=== PATIENT | female | born 1955 | race Caucasian/White ===

== ENCOUNTER 2021-08-19 20:29 | Emergency (ER) | payer OTHER ==
[~2021-08-19] VITALS: Ht 152.4 cm; Wt 63.5 kg
[2021-08-19 20:46] VITALS: BP 148/80
--- NOTE | 2021-08-19 20:49 | NUR ---
TO LOBBY A/W BED AMBULATORY
[2021-08-19 21:20] LABS: BASOPHILS # (AUTO) 0.1 K/uL (0.00-0.22); BASOPHILS % (AUTO) 0.7 % (0.0-2.0); EOSINOPHILS # (AUTO) 0.2 K/uL (0-0.4); EOSINOPHILS % (AUTO) 2.1 % (0.0-4.0); HEMOGLOBIN 13.3 g/dL (12.0-16.0); LYMPHOCYTES # (AUTO) 2.4 K/uL (2.5-16.5); LYMPHOCYTES % (AUTO) 23.4 % (20.5-51.1); MEAN CORPUSCULAR HEMOGLOBIN 32 pg (27-31); MEAN CORPUSCULAR HGB CONC 33 g/dL (33-37); MEAN CORPUSCULAR VOLUME 95.4 fL (80-94); MONOCYTES # (AUTO) 0.7 K/uL (0.8-1.0); MONOCYTES % (AUTO) 6.7 % (1.7-9.3); NEUTROPHILS % (AUTO) 67.1 % (42.2-75.2); PLATELET COUNT (AUTO) 238 K/uL (140-450); RED CELL DISTRIBUTION WIDTH 13.1 % (11.6-13.7); WHITE BLOOD COUNT (AUTO) 10.4 K/uL (4.8-10.8)
[2021-08-19 21:39] LABS: ALBUMIN 3.8 g/dL (3.4-5.0); ANION GAP 14.3 (8-16); CREATININE 0.8 mg/dL (0.6-1.3); POTASSIUM 4.3 mmol/L (3.5-5.1); TOTAL BILIRUBIN 0.7 mg/dL (0.0-1.0)
--- NOTE | 2021-08-19 23:25 | NUR ---
PT AMBULATED TO BED 06.
--- NOTE | 2021-08-19 23:51 | NUR ---
PT BIB SELF FOR C/C NAUSEA AND HEARTBURN X 4 MONTHS. PT REPORTS DECREASED APPETITE. DENIES VOMITTING, DIARRHEA, CP, SOB, FEVER/CHILLS. + ABDOMINAL PAIN POST EATING MEALS. ABDOMEN NONTENDER. MED HX: DM, HTN ALLERGIES: NKA
--- NOTE | 2021-08-20 00:06 | NUR ---
ERMD AT BEDSIDE.
--- NOTE | 2021-08-20 00:23 | NUR ---
PT PROVIDED URINE. ALSO CHANGED INTO GOWN FOR ULTRASOUND.
--- NOTE | 2021-08-20 01:14 | NUR ---
ULTRASOUND AT BEDSIDE.
--- NOTE | 2021-08-20 03:08 | NUR ---
Patient appears to be resting comfortably in bed, EYES CLOSED. Vital Signs within normal limits. Respirations even and unlabored. NO NOTED SIGNS OF DISTRESS. WILL CONTINUE TO MONITOR.
[2021-08-20] MEDS ORDERED: ONDA4TAB PO (03:49)
[2021-08-20 03:57] VITALS: BP 136/64
== END 2021-08-20 03:57 | disposition home or self-care (01) ==
LOC: MED 20:29
DX: R11.0 Nausea (principal); E11.9 Type 2 diabetes mellitus without complications; I10 Essential (primary) hypertension; Z79.899 Other long term (current) drug therapy
CPT/HCPCS: 36415; 76700; 80053; 81002; 83690; 85025; 99285; Q0092